=== PATIENT | male | born 1990 | race Caucasian/White ===

== ENCOUNTER 2018-10-07 23:39 | Emergency (ER) | payer OTHER ==
[~2018-10-07] VITALS: Ht 177.8 cm; Wt 81.7 kg
[~2018-10-07 23:39] MED LIST: CELEXA
[2018-10-07] MEDS ORDERED: ADDERALL 20 MG20 MG PO (23:49)
[2018-10-07] MEDS ORDERED: CLONAZEPAM 1 MG1 M1 PO (23:50)
[2018-10-08 02:39] VITALS: BP 104/60
== END 2018-10-08 02:42 ==
LOC: M.ERS 23:39
DX: S06.0X0A Concussion without loss of consciousness, initial encounter (principal); S01.81XA Laceration without foreign body of other part of head, initial encounter; S05.11XA Contusion of eyeball and orbital tissues, right eye, initial encounter; Y04.8XXA Assault by other bodily force, initial encounter; Y93.89 Activity, other specified; Y92.89 Other specified places as the place of occurrence of the external cause; Y99.8 Other external cause status; F32.9 Major depressive disorder, single episode, unspecified; F41.9 Anxiety disorder, unspecified